=== PATIENT | female | born 1990 | race African-American/Black ===

== ENCOUNTER 2016-05-20 15:10 | Outpatient (CLI) | payer BC ==
--- NOTE | 2016-05-20 16:01 | L&D Flow Sheet ---
LD Flowsheet Datetime Report Generated by CPN: 05/20/2016 16:00 Datetime: 05/20/2016 15:42 Vital Signs Stage of : OB Triage (Elsy Nicole Roulund, RN) NBP Sys/Edith/Mean (mmHg): 110 (QS system process) : 67 (QS system process) : 83 (QS system process) Pulse: 78 (QS system process) Uterine Activity Monitor Mode: External (Elsymaksim Rivera Roulund, RN) Monitor Interventions for UA: [place] Adjusted (Elsy Rivera Roulund, RN) Resting Tone (Palpate): Relaxed (Elsy Rivera Roulund, RN) Assessment A Monitor Mode: External US (Elsy Castillolund, RN) Monitor Interventions for FHR: Ultrasound Adjusted (Elsy Rivera Roulund, RN) FHR Baseline Rate : 135 (Elsy Castillolund, RN) Pain Pain Scale: 2 (Elsy Daniellend, RN) Pain Presence: Constant (Elsy Monzon, ZACH) Pain Type: Pressure (Elsy Monzon, ZACH) Pain Location: Abdomen (Elsy Monzon RN) Pain Relief Measures: Comfort Measures (Elsy Monzon, ZACH) Vaginal Exam Membrane Status: Intact (Elsy Monzon, ZACH) Vaginal Bleeding: None (Elsy Monzon, ZACH) Maternal Assessment Level of Consciousness: Fully Conscious (Elsy Monzon RN) DTR's/Clonus: DTRs 1+; No Clonus (Elsy Monzon, ZACH) Headache: Denies (Elsy Monzon, ZACH) Nausea/Vomiting: Denies (Elsy Monzon, ZACH) Patient Care Patient Position/Activity: Left Tilt; Low Fowlers (Elsy Monzon RN) I/O Interventions: Popsicle; Clear Liquids Given; Up to BR (Elsy Monzon RN) Teaching Instructional Method: Verbal; Patient Instructed; Verbalized Understanding (Elsy Monzon RN) Plan of Care: Plan of Care Discussed (Elsy Monzon RN) Unit Routine: Krebs to Room; Call Kapoor; Bed; Phone/Cell Phone Use; Unit Personnel; Handwashing; Monitoring; Safety/Fall Risk Prevention; Diet/Nutrition Services; Bathroom Privileges (Elsy Monzon RN) Pain Management: Pain Scale/Goals; Comfort Measures (Elsy Monzon RN) Related: Common Discomforts of ; Maternal Physical Changes; Maternal Emotional Changes; Nutrition; Hydration; Activity and Rest (Elsy Monzon RN) Communication Communication: RN at Bedside; RN Reviewed Strip (Elsy Monzon RN) LaborFlag: OB Triage (QS system process)
== END 2016-05-20 16:06 | disposition home or self-care (01) ==
LOC: LC 15:10
PROVIDERS: ATTEND Obstetrics & Gynecology
PROC: 4A1HXCZ Monitoring of Products of Conception, Cardiac Rate, External Approach (ICD-10-PCS; principal; 2016-05-20)
DX: O26.893 Other specified pregnancy related conditions, third trimester (principal); R10.9 Unspecified abdominal pain; Z3A.36 36 weeks gestation of pregnancy
CPT/HCPCS: 59025

== ENCOUNTER 2016-06-14 04:47 | Inpatient (IN) | payer BC ==
[2016-06-14 05:46] LABS: APPEARANCE,URINE CLEAR; BILIRUBIN,URINE NEGATIVE (NEGATIVE); GLUCOSE, URINE NEGATIVE (NEGATIVE); KETONES,URINE NEGATIVE (NEGATIVE); LEUKOCYTE ESTERASE,URINE NEGATIVE (NEGATIVE); NITRITE,URINE NEGATIVE (NEGATIVE); PROTEIN,URINE NEGATIVE (NEGATIVE); URINE SPECIFIC GRAVITY 1.005; UROBILINOGEN,URINE NEGATIVE mg/dL (<2.0)
[2016-06-14 06:11] LABS: URINE METHADONE SCREEN NEGATIVE; URINE OPIATES LOW NEGATIVE; URINE PHENCYCLIDINE SCREEN NEGATIVE
[2016-06-14 06:48] LABS: URINE BARBITURATES SCREEN UNCONFIRMED POSITIVE
[2016-06-14 07:27] LABS: ABSOLUTE BASOPHILS # (AUTO) 0.1 10^3/uL (0.0-0.2); ABSOLUTE EOSINOPHILS # (AUTO) 0.2 10^3/uL (0.0-0.6); ABSOLUTE MONOCYTES (AUTO) 0.8 10^3/uL (0.1-1.4); BASOPHILS % (AUTO) 0.6 % (0-2); EOSINOPHILS % (AUTO) 1.2 % (0-6); HEMATOCRIT 36.5 % (36.0-47.0); HEMOGLOBIN 11.9 g/dL (12.0-15.5); HGB HCT DIFFERENCE -0.8; LYMPHOCYTES % (AUTO) 23.3 % (13-45); MEAN CORPUSCULAR HEMOGLOBIN 25.6 pg (27.0-33.4); MEAN CORPUSCULAR HGB CONC 32.7 g/dL (32.0-36.0); MEAN CORPUSCULAR VOLUME 78 fl (80-97); MONOCYTES % (AUTO) 5.9 % (3-13); RED BLOOD COUNT 4.66 10^6/uL (3.72-5.28); RED CELL DISTRIBUTION WIDTH 13.8 % (11.5-14.0)
--- NOTE | 2016-06-14 08:00 | L&D Flow Sheet ---
LD Flowsheet Datetime Report Generated by CPN: 06/14/2016 08:00 Datetime: 06/14/2016 07:41 I/O Interventions: Up to BR (Stacia Marhefka, RN) Datetime: 06/14/2016 07:30 Uterine Activity Monitor Mode: External (Stacia Marhefka, RN) Frequency (min): 3-8 (Stacia Marhefka, RN) Quality: Mild (Stacia Marhefka, RN) Duration (sec): 50-80 (Stacia Marhefka, RN) Resting Tone (Palpate): Relaxed (Stacia Marhefka, RN) Assessment A Monitor Mode: External US (Stacia Marhefka, RN) FHR Baseline Rate : 130 (Stacia Marhefka, RN) FHR Baseline Changes: No Baseline Change (Staica Marhefka, RN) Variability: Minimal - Undetectable to <=5 bpm (Stacia Marhefka, RN) Accelerations: 15X15 (Stacia Marhefka, RN) Decelerations: None (Stacia Marhefka, RN) Datetime: 06/14/2016 07:24 Vital Signs NBP Sys/Edith/Mean (mmHg): 124 (QS system process) : 86 (QS system process) : 100 (QS system process) Pulse: 80 (QS system process) Respirations: 17 (Stacia Marhefka, RN) LaborFlag: OB Triage (QS system process) Datetime: 06/14/2016 07:22 Maternal Assessment Level of Consciousness: Fully Conscious (Stacia Marhefka, RN) DTR's/Clonus: DTRs 2+; No Clonus (Stacia Marhefka, RN) Headache: Denies (Stacia Marhefka, RN) Breath Sounds, Left: Clear and Equal (Stacia Marhefka, RN) Breath Sounds, Right: Clear and Equal (Stacia Marhefka, RN) Nausea/Vomiting: Denies (Stacia Marhefka, RN) RUQ Epigastric Pain: Denies (Stacia Marhefka, RN) Datetime: 06/14/2016 07:21 Patient Care IV/Blood Work: IV Started; IV Bolus Started (Mariposa Wells, RN) Datetime: 06/14/2016 07:18 Communication Comments: Bedside report to R Marfheka RN (Mariposa Priscilla, RN) Datetime: 06/14/2016 07:12 Procedures: Consents Signed (Mariposa Priscilla, RN) Datetime: 06/14/2016 07:00 Uterine Activity Monitor Mode: External (Stacia Marhefka, RN) Frequency (min): 4-9 (Stacia Marhefka, RN) Quality: Mild (Stacia Marhefka, RN) Duration (sec): 60-90 (Stacia Marhefka, RN) Resting Tone (Palpate): Relaxed (Stacia Marhefka, RN) Assessment A Monitor Mode: External US (Stacia Marhefka, RN) FHR Baseline Rate : 140 (Stacia Marhefka, RN) FHR Baseline Changes: No Baseline Change (Stacia Marhefka, RN) Variability: Moderate 6-25 bpm (Stacia Marhefka, RN) Accelerations: 15X15 (Stacia Marhefka, RN) Decelerations: Late (Stacia Marhefka, RN) Datetime: 06/14/2016 06:58 Provider Reviewed Strip: Yes (Mariposa Wells RN) Communication Comments: Report to Dr Anglin, Dr Anglin reviewed strip. Pt's pain level reviewed with Dr Anglin. Orders to admit pt (Mariposa Priscilla, RN) Datetime: 06/14/2016 06:45 Communication Comments: Dr Derrek on unit, report given. Orders to extend labor check 1 hour and repeat SVE (Mariposa Priscilla, RN) Datetime: 06/14/2016 05:57 Uterine Activity Monitor Mode: External; Palpation (Mariposa Priscilla, RN) Frequency (min): 3-7 (Mariposa Priscilla, RN) Quality: Mild/Moderate (Mariposa Priscilla, RN) Duration (sec): 60-100 (Mariposa Priscilla, RN) Resting Tone (Palpate): Relaxed (Mariposa Priscilla, RN) Assessment A Monitor Mode: External US (Mariposa Priscilla, RN) FHR Baseline Rate : 125 (Mariposa Priscilla, RN) Variability: Moderate 6-25 bpm (Mariposa Priscilla, RN) Accelerations: 15X15 (Mariposa Priscilla, RN) Decelerations: None (Mariposa Priscilla, RN) Patient Care Comments: monitors removed, pt to ambulate unit until 629 (Mariposa Priscilla, RN) Datetime: 06/14/2016 05:49 Comments: music for acoustic stimulation of (Mariposa Priscilla, RN) Patient Position/Activity: Right Lateral (Mariposa Priscilla, RN) Communication Communication: RN at Bedside (Mariposa Albrechtsel, RN) Datetime: 06/14/2016 05:35 Patient Position/Activity: Left Tilt (Mariposa Priscilla, RN) I/O Interventions: Popsicle (Mariposa Albrechtsel, RN) Datetime: 06/14/2016 05:30 Uterine Activity Monitor Mode: External; Palpation (Mariposa Priscilla, RN) Frequency (min): 3-6 (Mariposa Priscilla, RN) Quality: Mild/Moderate (Mariposa Priscilla, RN) Duration (sec): 50-80 (Mariposa Priscilla, RN) Resting Tone (Palpate): Relaxed (Mariposa Priscilla, RN) Assessment A Monitor Mode: External US (Mariposa Priscilla, RN) FHR Baseline Rate : 125 (Mariposa Priscilla, RN) Variability: Moderate 6-25 bpm (Mariposa Priscilla, RN) Accelerations: 10X10 (Mariposa Priscilla, RN) Decelerations: None (Mariposa Priscilla, RN) Datetime: 06/14/2016 05:15 Frequency (min): q 8-10 per pt (Mariposa Priscilla, RN) Quality: Mild/Moderate (Mariposa Priscilla, RN) Pain Pain Scale: 5 (Mariposa Priscilla, RN) Pain Presence: Intermittent (Mariposa Priscilla, RN) Pain Type: Contraction (Mariposa Priscilla, RN) Pain Location: Abdomen; Back (Mariposa Priscilla, RN) Pain Coping: Breathing Through Contractions (Mariposa Priscilla, RN) Membrane Status: Intact (Mariposa Priscilla, RN) Vaginal Bleeding: Normal Show (Mariposa Priscilla, RN) Maternal Assessment Level of Consciousness: Fully Conscious (Mariposa Priscilla, RN) DTR's/Clonus: DTRs 2+; No Clonus (Mariposa Priscilla, RN) Headache: Generalized (Mariposa Priscilla, RN) Breath Sounds, Left: Clear and Equal (Mariposa Priscilla, RN) Breath Sounds, Right: Clear and Equal (Mariposa Priscilla, RN) Nausea/Vomiting: Denies (Mariposa Priscilla, RN) RUQ Epigastric Pain: Denies (Mariposa Priscilla, RN) Patient Position/Activity: Left Lateral (Mariposa Priscilla, RN) Teaching Instructional Method: Verbal; Patient Instructed; Family/Support Person Instructed; Verbalized Understanding (Mariposa Priscilla, RN) Plan of Care: Plan of Care Discussed (Mariposa Albrechtsel, RN) LaborFlag: OB Triage (QS system process) Datetime: 06/14/2016 05:13 Vital Signs NBP Sys/Edith/Mean (mmHg): 114 (QS system process) : 72 (QS system process) : 88 (QS system process) Pulse: 78 (QS system process) LaborFlag: OB Triage (QS system process) Datetime: 06/14/2016 05:11 Vital Signs NBP Sys/Edith/Mean (mmHg): 142 (QS system process) : 82 (QS system process) : 106 (QS system process) Pulse: 95 (QS system process) LaborFlag: OB Triage (QS system process) Datetime: 06/14/2016 05:06 Vaginal Exam Dilatation (cm): 2.0 (Mariposa Wells RN) Effacement (%): 50 (Mariposa Wells RN) Station: -3 (Mariposa Wells RN) Exam by: Lorne Wells RN (Mariposa Wells RN) Vaginal Bleeding: None (Mariposa Wells RN) Cervix, Consistency: Moderate (Mariposa Wells RN) Cervix, Position: Posterior (Mariposa Wells RN)
[2016-06-14] MEDS ORDERED: OXYTOCIN/NORMAL SALINE 1,000 ML IV PRN ×2 (08:12→09:59)
[2016-06-14] MEDS ORDERED: EPHEDRINE SULFATE INJ 50 MG/1 ML AMPULE ONE (08:33)
[2016-06-14] MEDS ORDERED: FENTANYL CITRATE INJ/PF 100 MCG/2 ML AMPUL ONE ×2 (08:33→08:39)
[2016-06-14] MEDS ORDERED: BUPIVACAINE HCL 0.25 % INJ/PF (2.5 MG/1 ML) 30 ML VIAL ONE (08:33)
[2016-06-14] MEDS ORDERED: FENTANYL/BUPIVACAINE/NS/PF 200 MCG/100 ML RTUINJ EPI ONE (08:33)
[2016-06-14] MEDS ORDERED: PHENYLEPHRINE HCL INJ/PF 10 MG/1 ML SDV ONE (08:33)
[2016-06-14] MEDS ORDERED: LIDOCAINE 1% INJ-PF (10 MG/ML) 30 ML SDV ONE (08:48)
[2016-06-14] MEDS ORDERED: OXYTOCIN/NORMAL SALINE 20 UNIT/1,000 ML RTUINJ ONE (08:48)
[2016-06-14] MEDS ORDERED: MISOPROSTOL 0.2 MG TABLET ONE ×2 (08:48)
[2016-06-14] MEDS ORDERED: ZOLPIDEM TARTRATE 5 MG TABLET PO PRN (09:59)
[2016-06-14] MEDS ORDERED: DIPHENHYDRAMINE HCL 25 MG CAPSULE PO PRN (09:59)
[2016-06-14] MEDS ORDERED: ACETAMINOPHEN WITH CODEINE #3 TABLET PO PRN (09:59)
[2016-06-14] MEDS ORDERED: DIBUCAINE 1% OINTMENT 28 GM TP PRN (09:59)
[2016-06-14] MEDS ORDERED: PSEUDOEPHEDRINE HCL 30 MG TABLET PO PRN (09:59)
[2016-06-14] MEDS ORDERED: PROMETHAZINE HCL 25 MG TABLET PO PRN (09:59)
[2016-06-14] MEDS ORDERED: MAGNESIUM HYDROXIDE SUSP 30 ML UDCUP PO PRN (09:59)
[2016-06-14] MEDS ORDERED: GLYCERIN/WITCH HAZEL LEAF 1 EACH MED..PAD TP PRN (09:59)
[2016-06-14] MEDS ORDERED: ACETAMINOPHEN 650 MG SUPP.RECT PR PRN (09:59)
[2016-06-14] MEDS ORDERED: BENZOCAINE/MENTHOL AEROSOL SPRAY 56 ML TOP PRN (09:59)
[2016-06-14] MEDS ORDERED: DIPH/PERTUSS(ACELL)/TETANUS VAC/PF 0.5 ML SYR (>=10YO) IM PRN (09:59)
[2016-06-14] MEDS ORDERED: PROMETHAZINE HCL 25 MG SUPP.RECT PR PRN (09:59)
[2016-06-14] MEDS ORDERED: PROMETHAZINE HCL INJ 25 MG/1 ML VIAL IV PRN (09:59)
[2016-06-14] MEDS ORDERED: MEASLES,MUMPS&RUBELLA VACC/PF 0.5 ML VIAL SUBCUT PRN (09:59)
[2016-06-14] MEDS ORDERED: NA PHOS,M-B/NA PHOS,DI-BA (ADULT) 133 ML ENEMA PR PRN (09:59)
--- NOTE | 2016-06-14 10:00 | L&D Flow Sheet ---
LD Flowsheet Datetime Report Generated by CPN: 06/14/2016 10:00 Datetime: 06/14/2016 09:53 Stage of : Recovery (Ronel Murray, RN) Respirations: 18 (Ronel Murray, RN) Datetime: 06/14/2016 09:42 NBP Sys/Edith/Mean (mmHg): 140 (QS system process) : 84 (QS system process) : 107 (QS system process) Pulse: 96 (QS system process) I/O Interventions: [place] Discontinued (Ronel Murray, RN) Patient Care Comments: 200mL output (Ronel Murray, RN) LaborFlag: OB Triage (QS system process) Datetime: 06/14/2016 09:41 Communication Comments: Dr Frias at bedside for delivery (Ronel Sappall, RN) Datetime: 06/14/2016 09:36 NBP Sys/Edith/Mean (mmHg): 115 (QS system process) : 66 (QS system process) : 85 (QS system process) Pulse: 82 (QS system process) LaborFlag: OB Triage (QS system process) Datetime: 06/14/2016 09:35 NBP Sys/Edith/Mean (mmHg): 139 (QS system process) : 70 (QS system process) : 99 (QS system process) Pulse: 82 (QS system process) Pulse: 85 (QS system process) SpO2 (%): 99 (QS system process) Monitor Interventions for UA: [place] Adjusted (Ronel Murray RN) Patient Position/Activity: Left Tilt (Ronel Murray RN) LaborFlag: OB Triage (QS system process) Datetime: 06/14/2016 09:34 NBP Sys/Edith/Mean (mmHg): 146 (QS system process) : 66 (QS system process) : 95 (QS system process) Pulse: 90 (QS system process) LaborFlag: OB Triage (QS system process) Datetime: 06/14/2016 09:33 NBP Sys/Edith/Mean (mmHg): 153 (QS system process) : 95 (QS system process) : 117 (QS system process) Pulse: 90 (QS system process) Pulse: 91 (QS system process) SpO2 (%): 89 (QS system process) LaborFlag: OB Triage (QS system process) Datetime: 06/14/2016 09:32 NBP Sys/Edith/Mean (mmHg): 151 (QS system process) : 92 (QS system process) : 116 (QS system process) Pulse: 91 (QS system process) Epidural Procedure Other: Pump Started (Ronel Murray RN) LaborFlag: OB Triage (QS system process) Datetime: 06/14/2016 09:31 NBP Sys/Edith/Mean (mmHg): 142 (QS system process) : 83 (QS system process) : 108 (QS system process) Pulse: 86 (QS system process) LaborFlag: OB Triage (QS system process) Datetime: 06/14/2016 09:30 Pulse: 87 (QS system process) SpO2 (%): 98 (QS system process) LaborFlag: OB Triage (QS system process) Datetime: 06/14/2016 09:29 NBP Sys/Edith/Mean (mmHg): 149 (QS system process) : 84 (QS system process) : 111 (QS system process) Pulse: 90 (QS system process) Epidural Procedure: Cath Placed (Roenl Senaitdy, RN) LaborFlag: OB Triage (QS system process) Datetime: 06/14/2016 09:28 Epidural Procedure: Test Dose (Ronel Murray, RN) Datetime: 06/14/2016 09:25 Pulse: 109 (QS system process) SpO2 (%): 100 (QS system process) LaborFlag: OB Triage (QS system process) Datetime: 06/14/2016 09:23 Procedure Type: epidural (Ronel Murray RN) Procedure Verify: Correct Patient Identity; Correct Side and Site are Marked; Accurate Procedure Consent Form; Agreement on Procedure to be Done; Correct Patient Position; Relevant Images and Results are Properly Labeled and Displayed; Addressed Need to Administer Antibiotics or Fluids for Irrigation; Safety Precautions Based on Patient History or Medication Use (Ronel Murray RN) Anesthesia Plans: Epidural (Ronel Murray RN) Epidural Positioning: Sitting (Ronel Murray RN) Datetime: 06/14/2016 09:21 Anesthesia Comments: Dr Valero at bedside (Ronel Murray, RN) Datetime: 06/14/2016 09:12 Monitor Interventions for UA: [place] Adjusted (Ronel Murray, RN) Datetime: 06/14/2016 09:00 Monitor Mode: External; Palpation (Alivia Godfrey RN) Frequency (min): 2-6 (Alivia Godfrey RN) Quality: Moderate (Alivia Godfrey RN) Duration (sec): 60-90 (Alivia Godfrey RN) Resting Tone (Palpate): Relaxed (Alivia Godfrey RN) Monitor Mode: External US (Alivia Godfrey RN) FHR Baseline Rate : 125 (Alivia Godfrey RN) Variability: Moderate 6-25 bpm (Alivia Godfrey RN) Accelerations: 15X15 (Alivia Godfrey RN) Decelerations: Variable (Alivia Godfrey RN) Patient Care Comments: Pt vomiting (Ronel Murray, RN) Datetime: 06/14/2016 08:54 NBP Sys/Edith/Mean (mmHg): 120 (QS system process) : 63 (QS system process) : 86 (QS system process) Pulse: 84 (QS system process) LaborFlag: OB Triage (QS system process) Datetime: 06/14/2016 08:45 Anesthesia Comments: Dr [place] notified of pt request for epidural. (Ronel Murray, RN) Datetime: 06/14/2016 08:30 Monitor Mode: External US (Alivia Godfrey RN) FHR Baseline Rate : 125 (Alivia Godfrey RN) Variability: Minimal - Undetectable to <=5 bpm (Alivia Godfrey RN) Accelerations: 15X15 (Alivia Godfrey RN) Comments: Poor tracing due to maternal position on ball. RN at bedside adjusting EFM (Alivia Godfrey RN) Datetime: 06/14/2016 08:00 Monitor Mode: External; Palpation (Alivia Godfrey RN) Frequency (min): Irreg (Alivia Godfrey RN) Quality: Mild (Alivia Godfrey RN) Duration (sec): 60-80 (Alivia Godfrey RN) Resting Tone (Palpate): Relaxed (Alivia Godfrey RN) Monitor Mode: External US (Alivia Godfrey RN) FHR Baseline Rate : 125 (Alivia Godfrey RN) Variability: Minimal - Undetectable to <=5 bpm (Alivia Godfrey RN) Accelerations: 15X15 (Alivia Godfrey RN) Comments: Poor tracing due to maternal position on birthing ball. RN at bedside adjusting EFM. (Alivia Godfrey RN)
--- NOTE | 2016-06-14 11:50 | Delivery Summary ---
Del Sum A-C Datetime Report Generated by CPN: 06/14/2016 11:50 ADMISSION DATA Chief Complaint: Uterine Contractions Indication for Induction: Not Applicable Admission Impression: Term, Intrauterine ; Active Labor; Intact Membranes DELIVERY PERSONNEL Delivery Doctor:: Phillip Frias MD Labor and Delivery Nurse:: Stacia Brown RNfan engine engineer Nurse:: Ronel Murray RN Nursery Nurse:: Alivia Godfrey RN [employer] Repairer/PROCESS ENGINEERING INTERN: Gumaro Santiago, MANAGER TITLE MATERNAL INFORMATION Delivery Anesthesia: Epidural Medications After Delivery: Pitocin Bolus-Please Comment Meds After Delivery Comment: Pitocin 20 units in 1000 mL NS Estimated Blood Loss (ml): 150 Maternal Complications: None LABOR SUMMARY EDC: 06/20/2016 00:00 No. Babies in Womb: 1 Attempted: No Labor Anesthesia: Epidural LABOR INFORMATION Reason for Induction: Not Applicable Onset of Labor: 06/14/2016 07:00 Complete Dilatation: 06/14/2016 09:38 Oxytocin: N/A Group B Beta Strep: negative Antibiotics # of Doses: 0 Antibiotics Time of Last Dose: N/A Steroids Given: None Reason Steroids Not Administered: Not Applicable MEMBRANES Membranes Rupture Method: Spontaneous Rupture of Membranes: 06/14/2016 09:00 Length of Rupture (hr): 0.85 Amniotic Fluid Color: Light Meconium Amniotic Fluid Amount: Scant Amniotic Fluid Odor: Normal STAGES OF LABOR Stage 1 hr: 2 Stage 1 min: 38 Stage 2 hr: 0 Stage 2 min: 13 Stage 3 hr: 0 Stage 3 min: 2 Total Time in Labor hr: 2 Total Time in Labor min: 53 VAGINAL DELIVERY Episiotomy: None Laceration Extension: N/A Laceration Type: None Laceration Repair: Not Applicable Sponge Count Correct: Vaginal Sweep Performed Sharps Count Correct: Yes BABY A INFORMATION Delivery Date/Time: 06/14/2016 09:51 Method of Delivery: Vaginal Born in Route : No : N/A Forceps: N/A Vacuum Extraction: N/A Shoulder Dystocia : No PRESENTATION/POSITION BABY A Presentation: Cephalic Cephalic Presentation: Vertex Vertex Position: Left Occipital Anterior Breech Presentation: N/A PLACENTA INFORMATION BABY A Placenta Delivery Time : 06/14/2016 09:53 Placenta Method of Delivery: Spontaneous Placenta Status: Delivered SCORES BABY A Heart Rate 1 min: >100 bpm Resp Effort 1 min: Good Cry Reflex Irritability 1 min: Cough or Sneeze or Pulls Away Muscle Tone 1 min: Some Flexion of Extremities Color 1 min: Blue/Pale Resuscitation Effort 1 min: Tactile Stimulation SCORE 1 MIN: 7 Heart Rate 5 min: >100 bpm Resp Effort 5 min: Good Cry Reflex Irritability 5 min: Cough or Sneeze or Pulls Away Muscle Tone 5 min: Active Motion Color 5 min: Body [place], Extremities Blue Resuscitation Effort 5 min: Tactile Stimulation SCORE 5 MIN: 9 INFORMATION BABY A Gestational Age at Delivery: 39.1 Gestational Status: Full Term- 39- 40.6 Weeks Outcome : Liveborn Infant Condition : Stable Infant Sex: Male IDENTIFICATION BABY A Infant Verification Date/Time: 06/14/2016 10:00 ID Band Number: [id number] Mother's Name Verified: Yes RN Verifying Infant: Kimberly Godfrey, RN and RAna Brown, RN WEIGHT/LENGTH BABY A Infant Birthweight (gm): 3150 Weight (lb): 6 Weight (oz): 15 Infant Length (in): 20.00 Length (cm): 50.80 CORD INFORMATION BABY A No. Cord Vessels: 3 Nuchal Cord : N/A Cord Blood Taken: Yes-For Storage (Mom's Blood type +) Infant Suction: Mouth; Nose ASSESSMENT BABY A Complications: None Physical Findings at Delivery: Within Normal Limits Respirations: Appears Normal Skin to Skin: Yes Gunner'S Mate/ALS Called : No Infant Care By: Kimberly HuttonZACH arreaga Transferred To: Remains with Mother BABY B INFORMATION : N/A SIGNATURES Signature: with User ID: [email or web address]
--- NOTE | 2016-06-14 12:30 | Admission Physical ---
Datetime Report Generated by CPN: 06/14/2016 12:30 CURRENT ADMISSION Chief Complaint: Uterine Contractions Indication for Induction: Not Applicable Admit Plan: Admit to Unit; Initiate Labor Protocol ALLERGIES Medication Allergies: No Medication Allergies: No Known Allergies (06/14/2016) Medication Allergies: No Known Allergies (05/20/2016) Medication Allergies: No Known Allergies (01/20/2016) Latex: No Latex Allergies Environmental Allergies: yes OBSTETRICAL HISTORY EDC: 06/20/2016 00:00 : 3 Para: 2 Gestational Diabetes: No Rh Sensitization: No Incompetent Cervix: No NIKKY: No Infertility: No ART Treatment: No Uterine Anomaly: No IUGR: No Hx Previous C/S: No Macrosomia: No Hx Loss/Stillborn: No PIH: No Hx : No Placenta Previa/Abruption: No Depression/PP Depression: Yes PTL/PROM: No Post Hemorrhage: No Current Procedures: Ultrasound; NST Obstetrical History Comments: G1: 2007 40 weeks male 8 lbs 10 oz G2: 2009 39 weeks female 7 lbs 11 oz G3: SEE RECORDS Alcohol: No Marijuana : No Cocaine: No Other Illicit Drugs: No Cigarettes: Never Smoker. [id number] MEDICAL HISTORY Diabetes: No Blood Transfusion: No Pulmonary Disease (Asthma, TB): No Breast Disease: No Hypertension: No [place] Surgery: No Heart Disease: No Hosp/Surgery: Yes Autoimmune Disorder: No Anesthetic Complications: No Kidney Disease: No Abnormal Pap Smear: Yes Neuro/Epilepsy: Yes Psychiatric Disorders: No Other Medical Diseases: Yes Hepatitis/Liver Disease: No Significant Family History: No Varicosities/Phlebitis: No Trauma/Violence : No Thyroid Dysfunction: No Medical History Comments: daily headaches during , taking fiorcet depression/anxiety- meds in past INFECTIOUS HISTORY Gonorrhea: No Genital Herpes: No Chlamydia: No Tuberculosis: No Syphilis: No Hepatitis: No HIV/AIDS Exposure: No Rash or Viral Illness: No 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 ASCUS pap, colpo post PHYSICAL EXAM General: Normal HEENT: Normal Neurologic: Normal Thyroid: Deferred Heart: Normal Lungs: Normal Breast: Deferred Back: Normal Abdomen: Normal Genitourinary Exam: Normal Extremities: Normal DTRs: Normal Pelvic Type: Adequate Vital Signs: Reviewed; Within Normal Limits VAGINAL EXAM Dilatation: 3 Effacement: 50 Station: -3 MEMBRANES Membranes: Intact FETUS A EGA: 39.1 Monitoring: External US FHR- Baseline: 140 Variability: Moderate 6-25bpm Accelerations: 15X15 Decelerations: None FHR Category: Category I PLANS FOR LABOR AND DELIVERY Pain Management: Epidural Feeding Preference: Breast Benefit of Breast Feed Discussed: Yes Circumcision: Yes INFORMED CONSENT Signature: with User ID: [email or web address]
[2016-06-14] MEDS: SENNOSIDES/DOCUSATE 8.6-50 MG 1 EACH TABLET PO SCH (13:15)
[2016-06-14] MEDS: FERROUS SULFATE 325 MG TABLET PO SCH ×2 (13:15→17:08)
[2016-06-14] MEDS: DOCUSATE SODIUM 100 MG CAPSULE PO SCH ×2 (13:15→17:08)
[2016-06-14] MEDS: PRENATAL VITAMIN W-O CA NO5/FE FUMARATE/FA CAPSULE PO SCH (13:15)
[2016-06-14] MEDS: FAMOTIDINE 20 MG TABLET PO SCH ×2 (13:15→21:07)
[2016-06-14] MEDS ORDERED: IBUPROFEN 800 MG TABLET PO SCH (14:00)
[2016-06-14] MEDS: IBUPROFEN 800 MG TABLET PO SCH (17:08)
[2016-06-14] MEDS: ACETAMINOPHEN WITH CODEINE #3 TABLET PO PRN (18:30)
--- NOTE | 2016-06-14 19:00 | L&D Flow Sheet ---
LD Flowsheet Datetime Report Generated by CPN: 06/14/2016 19:00 Datetime: 06/14/2016 11:54 NBP Sys/Edith/Mean (mmHg): 126 (QS system process) : 72 (QS system process) : 94 (QS system process) Pulse: 72 (QS system process) Datetime: 06/14/2016 11:45 Stage of : Recovery (Stacia Brown RN) Temperature (F): 99.3 (Stacia Brown RN) Temperature (C): 37.4 (QS system process) Temperature Route: Oral (Stacia Brown RN) Pain Scale: 1 (Stacia Brown RN) Pain Presence: Intermittent (Stacia Brown RN) Pain Type: Ache (Stacia Brown RN) Pain Location: Abdomen (Stacia Brown RN) Pain Goal: 0 (Stacia Brown RN) Pain Relief Measures: Comfort Measures (Staciameron Goelkim, RN) Datetime: 06/14/2016 11:24 Stage of : Recovery (Stacia Brown, ZACH) NBP Sys/Edith/Mean (mmHg): 129 (QS system process) : 63 (QS system process) : 90 (QS system process) Pulse: 73 (QS system process) Respirations: 15 (Stacia Brown, RN) Datetime: 06/14/2016 11:15 Stage of : Recovery (Stacia Brown, ZACH) Datetime: 06/14/2016 11:10 NBP Sys/Edith/Mean (mmHg): 146 (QS system process) : 69 (QS system process) : 99 (QS system process) Pulse: 87 (QS system process) Datetime: 06/14/2016 11:00 Stage of : Recovery (Stacia Marhefka, RN) Datetime: 06/14/2016 10:55 NBP Sys/Edith/Mean (mmHg): 153 (QS system process) : 64 (QS system process) : 92 (QS system process) Pulse: 81 (QS system process) Datetime: 06/14/2016 10:45 Stage of : Recovery (Stacia Marhefka, RN) Datetime: 06/14/2016 10:30 Stage of : Recovery (Stacia Marhefka, RN) Datetime: 06/14/2016 10:25 NBP Sys/Edith/Mean (mmHg): 124 (QS system process) : 66 (QS system process) : 90 (QS system process) Pulse: 85 (QS system process) Datetime: 06/14/2016 10:15 Stage of : Recovery (Stacia Brown, RN) Datetime: 06/14/2016 10:00 Stage of : Recovery (Stacia Brown RN) Pain Scale: 1 (Stacia Brown RN) Pain Presence: Constant (Stacia Brown RN) Pain Type: Burning (Stacia Brown RN) Pain Location: Perineum (Stacia Brown RN) Pain Goal: 0 (Stacia Brown RN) Pain Relief Measures: Comfort Measures (Stacia Brown, ZACH) Datetime: 06/14/2016 09:53 Stage of : Recovery (Ronel Murray, ZACH) Respirations: 18 (Ronel Sappall, RN) Datetime: 06/14/2016 09:46 Pain Scale: 2 (Alivia Godfrey RN) Pain Presence: Intermittent (Alivia Godfrey RN) Pain Type: Pressure (Alivia Godfrey RN) Pain Location: Perineum (Alivia Godfrey RN) Pain Goal: 0 (Alivia Godfrey RN) Pain Relief Measures: Epidural Given (Alivia Godfrey RN) LaborFlag: OB Triage (QS system process) Datetime: 06/14/2016 09:45 Monitor Mode: External; Palpation (Alivia Godfrey RN) Frequency (min): 3-4 (Alivia Godfrey RN) Quality: Moderate to Strong (Alivia Godfrey RN) Duration (sec): 60-80 (Alivia Godfrey RN) Resting Tone (Palpate): Relaxed (Alivia Godfrey RN) Monitor Mode: External US (Alivia Godfrey RN) FHR Baseline Rate : 135 (Alivia Godfrey RN) Variability: Moderate 6-25 bpm (Alivia Godfrey RN) Accelerations: None (Alivia Godfrey RN) Decelerations: Variable (Alivia Godfrey RN) Datetime: 06/14/2016 09:42 NBP Sys/Edith/Mean (mmHg): 140 (QS system process) : 84 (QS system process) : 107 (QS system process) Pulse: 96 (QS system process) I/O Interventions: Peoples Discontinued (Ronel Murray RN) Patient Care Comments: 200mL output (Ronel Murray RN) LaborFlag: OB Triage (QS system process) Datetime: 06/14/2016 09:41 Communication Comments: Dr Frias at bedside for delivery (Ronel Murray RN) Datetime: 06/14/2016 09:40 Communication: Call/Page Placed to Provider (Alivia Godfrey RN) Provider Notified (Name): Dr. Frias (Alivia Godfrey RN) Communication Comments: Notified of SVE and imminent delivery. Provider to come to bedside for delivery. (Alivia Godfrey RN) Datetime: 06/14/2016 09:38 Dilatation (cm): 10.0 (Alivia Godfrey RN) Effacement (%): 100 (Alivia Godfrey RN) Station: 2 (Alivia Godfrey RN) Exam by: Zoe Brown RN (Alivia Godfrey RN) Datetime: 06/14/2016 09:36 NBP Sys/Edith/Mean (mmHg): 115 (QS system process) : 66 (QS system process) : 85 (QS system process) Pulse: 82 (QS system process) I/O Interventions: Peoples Cath Inserted (Alivia Godfrey RN) LaborFlag: OB Triage (QS system process) Datetime: 06/14/2016 09:35 NBP Sys/Edith/Mean (mmHg): 139 (QS system process) : 70 (QS system process) : 99 (QS system process) Pulse: 82 (QS system process) Pulse: 85 (QS system process) SpO2 (%): 99 (QS system process) Monitor Interventions for UA: [employer] Adjusted (Ronel Murray RN) Patient Position/Activity: Left Tilt (Ronel Murray RN) LaborFlag: OB Triage (QS system process) Datetime: 06/14/2016 09:34 NBP Sys/Edith/Mean (mmHg): 146 (QS system process) : 66 (QS system process) : 95 (QS system process) Pulse: 90 (QS system process) LaborFlag: OB Triage (QS system process) Datetime: 06/14/2016 09:33 NBP Sys/Edith/Mean (mmHg): 153 (QS system process) : 95 (QS system process) : 117 (QS system process) Pulse: 90 (QS system process) Pulse: 91 (QS system process) SpO2 (%): 89 (QS system process) LaborFlag: OB Triage (QS system process) Datetime: 06/14/2016 09:32 NBP Sys/Edith/Mean (mmHg): 151 (QS system process) : 92 (QS system process) : 116 (QS system process) Pulse: 91 (QS system process) Epidural Procedure Other: Pump Started (Ronel Murray RN) LaborFlag: OB Triage (QS system process) Datetime: 06/14/2016 09:31 NBP Sys/Edith/Mean (mmHg): 142 (QS system process) : 83 (QS system process) : 108 (QS system process) Pulse: 86 (QS system process) LaborFlag: OB Triage (QS system process) Datetime: 06/14/2016 09:30 Pulse: 87 (QS system process) SpO2 (%): 98 (QS system process) Monitor Mode: External; Palpation (Alivia Godfrey RN) Frequency (min): 3-4 (Alivia Godfrey RN) Quality: Moderate to Strong (Alivia Godfrey RN) Duration (sec): 60-90 (Alivia Godfrey, RN) Resting Tone (Palpate): Relaxed (Alivia Godfrey, RN) Monitor Mode: External US (Alivia Godfrey RN) FHR Baseline Rate : 135 (Alivia Godfrey RN) Variability: Moderate 6-25 bpm (Alivia Godfrey, RN) Accelerations: None (Alivia Godfrey, RN) Decelerations: Variable (Alivia Godfrey, RN) LaborFlag: OB Triage (QS system process) Datetime: 06/14/2016 09:29 NBP Sys/Edith/Mean (mmHg): 149 (QS system process) : 84 (QS system process) : 111 (QS system process) Pulse: 90 (QS system process) Epidural Procedure: Cath Placed (Ronel Murray, RN) LaborFlag: OB Triage (QS system process) Datetime: 06/14/2016 09:28 Epidural Procedure: Test Dose (Ronel Murray, RN) Datetime: 06/14/2016 09:25 Pulse: 109 (QS system process) SpO2 (%): 100 (QS system process) LaborFlag: OB Triage (QS system process) Datetime: 06/14/2016 09:23 Procedure Type: epidural (Ronel Murray RN) Procedure Verify: Correct Patient Identity; Correct Side and Site are Marked; Accurate Procedure Consent Form; Agreement on Procedure to be Done; Correct Patient Position; Relevant Images and Results are Properly Labeled and Displayed; Addressed Need to Administer Antibiotics or Fluids for Irrigation; Safety Precautions Based on Patient History or Medication Use (Ronel Murray RN) Anesthesia Plans: Epidural (Ronel Murray RN) Epidural Positioning: Sitting (Ronel Murray RN) Datetime: 06/14/2016 09:21 Anesthesia Comments: Dr [place] at bedside (Ronel Murray, ZACH) Datetime: 06/14/2016 09:12 Monitor Interventions for UA: [employer] Adjusted (Ronel Murray RN) Datetime: 06/14/2016 09:00 Monitor Mode: External; Palpation (Alivia Godfrey RN) Frequency (min): 2-6 (Alivia Godfrey RN) Quality: Moderate (Alivia Godfrey RN) Duration (sec): 60-90 (Alivia Godfrey RN) Resting Tone (Palpate): Relaxed (Alivia Godfrey RN) Monitor Mode: External US (Alivia Godfrey RN) FHR Baseline Rate : 125 (Alivia Godfrey RN) Variability: Moderate 6-25 bpm (Alivia Godfrey RN) Accelerations: 15X15 (Alivia Godfrey RN) Decelerations: Variable (Alivia Godfrey RN) Membrane Status: Ruptured (Stacai Brown RN) Membranes Rupture Method: Spontaneous (Stacia Brown RN) Amniotic Fluid Color: Light Meconium (Stacia Brown RN) Amniotic Fluid Amount: Scant (Stacia Brown RN) Amniotic Fluid Odor: Normal (Stacia Brown RN) Patient Care Comments: Pt vomiting (Ronel Murray RN) Datetime: 06/14/2016 08:54 NBP Sys/Edith/Mean (mmHg): 120 (QS system process) : 63 (QS system process) : 86 (QS system process) Pulse: 84 (QS system process) LaborFlag: OB Triage (QS system process) Datetime: 06/14/2016 08:50 Dilatation (cm): 8.0 (Stacia Brown, RN) Effacement (%): 90 (Stacia Brown, RN) Station: 0 (Stacia Brown, RN) Exam by: RAna Brown RN (Stacia Goelfka, RN) Datetime: 06/14/2016 08:45 Anesthesia Comments: Dr Valero notified of pt request for epidural. (Ronel Murray RN) Datetime: 06/14/2016 08:34 IV/Blood Work: IV Bolus Started (Alivia Godfrey RN) Datetime: 06/14/2016 08:33 Pain Scale: 5 (Alivia Godfrey RN) Pain Presence: Intermittent (Alivia Godfrey RN) Pain Type: Contraction (Alivia Godfrey RN) Pain Location: Abdomen (Alivia Godfrey RN) Pain Goal: 0 (Alivia Godfrey RN) Pain Assessment Comments: Epidural requested. (Alivia Godfrey RN) LaborFlag: OB Triage (QS system process) Datetime: 06/14/2016 08:32 Dilatation (cm): 7.0 (Alivia Godfrey RN) Effacement (%): 90 (Alivia Godfrey RN) Station: -1 (Alivia Godfrey RN) Exam by: Kimberly Godfrey RN (Alivia Godfrey RN) Patient Position/Activity: Left Lateral (Alivia Godfrey, RN) Datetime: 06/14/2016 08:30 Monitor Mode: External US (Alivia Godfrey, RN) FHR Baseline Rate : 125 (Alivia Godfrey, RN) Variability: Minimal - Undetectable to <=5 bpm (Alivia Godfrey, RN) Accelerations: 15X15 (Alivia Godfrey RN) Comments: Poor tracing due to maternal position on ball. RN at bedside adjusting EFM (Alivia Godfrey, ZACH) Datetime: 06/14/2016 08:00 Monitor Mode: External; Palpation (Alivia Godfrey RN) Frequency (min): Irreg (Alivia Godfrey RN) Quality: Mild (Alivia Godfrey, RN) Duration (sec): 60-80 (Alivia Godfrey RN) Resting Tone (Palpate): Relaxed (Alivia Godfrey, RN) Monitor Mode: External US (Alivia Godfrey RN) FHR Baseline Rate : 125 (Alivia Godfrey, RN) Variability: Minimal - Undetectable to <=5 bpm (Alivia Godfrey, RN) Accelerations: 15X15 (Alivia Godfrey, RN) Comments: Poor tracing due to maternal position on birthing ball. RN at bedside adjusting EFM. (Alivia Godfrey, RN) Datetime: 06/14/2016 07:59 Patient Care Comments: Pt vomiting (Ronel Baidy, RN) Datetime: 06/14/2016 07:41 I/O Interventions: Up to BR (Stacia Marhefka, RN) Datetime: 06/14/2016 07:30 Monitor Mode: External (Stacia Marhefka, RN) Frequency (min): 3-8 (Stacia Marhefka, RN) Quality: Mild (Stacia Marhefka, RN) Duration (sec): 50-80 (Stacia Marhefka, RN) Resting Tone (Palpate): Relaxed (Stacia Marhefka, RN) Monitor Mode: External US (Stacia Marhefka, RN) FHR Baseline Rate : 130 (Stacia Marhefka, RN) FHR Baseline Changes: No Baseline Change (Stacia Marhefka, RN) Variability: Minimal - Undetectable to <=5 bpm (Stacia Marhefka, RN) Accelerations: 15X15 (Stacia Marhefka, RN) Decelerations: None (Stacia Marhefka, RN) Datetime: 06/14/2016 07:24 NBP Sys/Edith/Mean (mmHg): 124 (QS system process) : 86 (QS system process) : 100 (QS system process) Pulse: 80 (QS system process) Respirations: 17 (Stacia Marhefka, RN) LaborFlag: OB Triage (QS system process) Datetime: 06/14/2016 07:22 Level of Consciousness: Fully Conscious (Stacia Marhefka, RN) DTR's/Clonus: DTRs 2+; No Clonus (Stacia Marhefka, RN) Headache: Denies (Stacia Marhefka, RN) Breath Sounds, Left: Clear and Equal (Stacia Marhefka, RN) Breath Sounds, Right: Clear and Equal (Stacia Marhefka, RN) Nausea/Vomiting: Denies (Stacia Marhefka, RN) RUQ Epigastric Pain: Denies (Stacia Marhefka, RN) Datetime: 06/14/2016 07:21 IV/Blood Work: IV Started; IV Bolus Started (Mariposa Priscilla, RN) Datetime: 06/14/2016 07:18 Communication Comments: Bedside report to [facility] RN (Mariposa Priscilla, RN) Datetime: 06/14/2016 07:12 Procedures: Consents Signed (Mariposa Priscilla, RN) Datetime: 06/14/2016 07:00 Monitor Mode: External (Stacia Manasafka, RN) Frequency (min): 4-9 (Stacia Marcatefka, RN) Quality: Mild (Stacia Marhefka, RN) Duration (sec): 60-90 (Stacia Manasafka, RN) Resting Tone (Palpate): Relaxed (Stacia Manasafka, RN) Monitor Mode: External US (Stacia Manasafka, RN) FHR Baseline Rate : 140 (Stacia Manasafka, RN) FHR Baseline Changes: No Baseline Change (Stacia Phylliska, RN) Variability: Moderate 6-25 bpm (Stacia Marhefka, RN) Accelerations: 15X15 (Stacia Marhefka, RN) Decelerations: Late (Stacia Marhefka, RN)
[2016-06-15] MEDS: ACETAMINOPHEN WITH CODEINE #3 TABLET PO PRN (00:04)
[2016-06-15] MEDS: IBUPROFEN 800 MG TABLET PO SCH ×3 (02:06→19:37)
--- NOTE | 2016-06-15 06:00 | L&D Current Admission ---
Current Admit Datetime Report Generated by CPN: 06/15/2016 06:00 ADMISSION INFORMATION Current Admit Date/Time: 06/14/2016 06:58 (06/14/2016 05:15:Analy Willis RN) Reason for Admission: Onset of Labor (06/14/2016 05:15:Analy Willis RN) Chief Complaint: Contractions (06/14/2016 05:15:Mariposa Wells RN) Medications During : Vitamin (06/14/2016 05:15:Analy Willis RN) EGA per Dates: 39.1 (06/14/2016 05:15:QS system process) Method of Arrival: Wheelchair (06/14/2016 05:15:Analy Willis RN) Admitted From: Home (06/14/2016 05:15:Analy Willis RN) Reason for Induction: Not Applicable (06/14/2016 05:15:Analy Willis RN) Records Available: Yes (06/14/2016 05:15:Analy Willis RN) General Admission Information: Reviewed; Updated; Confirmed (06/14/2016 05:15:Mariposa Wells RN) General Admission Reviewed By: Lorne Wells RN (06/14/2016 05:15:Mariposa Wells RN) BELONGINGS/ADVANCED DIRECTIVES Other Belongings: See [facility] belongings form (06/14/2016 05:15:Mariposa Wells RN) Advance Direct for Healthcare: No, and Wants No Information (06/14/2016 05:15:Mariposa Wells RN) Durable Power of Fabricator Special Items: No (06/14/2016 05:15:Mariposa Wells RN) Living Will: No (06/14/2016 05:15:Mariposa Wells RN) Organ Donor: No (06/14/2016 05:15:Mariposa Wells RN) Pt Rights Information Given: Yes (06/14/2016 05:15:Mariposa Wells RN) Pt Understands Pt Rights: Yes (06/14/2016 05:15:Mariposa Wells RN) LEARNING ASSESSMENT Knowledge Level: Understands L_D Process (06/14/2016 05:15:Mariposa Wells RN) Barriers to Learning: Emotional State; Pain (06/14/2016 05:15:Mariposa Wells RN) Learning Readiness: Motivated (06/14/2016 05:15:Mariposa Wells RN) Learns Best By: 1 to 1 Instruction (06/14/2016 05:15:Mariposa Wells RN) Learning Needs: Labor and Delivery Process; Pain Management; Symptoms to Report; Treatment Plan; Medication; Diagnosis; Nutrition; Equipment; Infant Care (06/14/2016 05:15:Mariposa Wells RN) DOMESTIC VIOLANCE SCREENING Dom Viol Threatened/Hurt: No (06/14/2016 05:15:Mariposa Wells RN) Hx of Abuse/Neglect past 2yrs: No (06/14/2016 05:15:Mariposa Wells RN) Feel Unsafe Going Home: No (06/14/2016 05:15:Mariposa Wells RN) Addt'l Observ Indicating Abuse: No (06/14/2016 05:15:Mariposa Wells RN) Reason Unable to Complete Screen: N/A, Screen Completed (06/14/2016 05:15:Mariposa Wells RN) Considered Personal Harm/Suicide: No (06/14/2016 05:15:Mariposa Wells RN) NUTRITIONAL/FUNCTIONAL SCREENING Problem with Appetite >5 Days: No (06/14/2016 05:15:Mariposa Wells RN) Chew/Swallow Difficulties: No (06/14/2016 05:15:Mariposa Wells RN) Inappropriate Wt Gain/Loss: No (06/14/2016 05:15:Mariposa Wells RN) Presence Skin Breakdown/Ulcer: No (06/14/2016 05:15:Mariposa Wells RN) Special Diet: No (06/14/2016 05:15:Mariposa Wells RN) Pt Requests Early Childhood Worker Visit: No (06/14/2016 05:15:Mariposa Wells RN) Hx of Any of the Following?: N/A (06/14/2016 05:15:Mariposa Wells RN) New Diagnosis of: N/A (06/14/2016 05:15:Mariposa Wells RN) Requires Assist w/Ambulation: No (06/14/2016 05:15:Mariposa Wells RN) Uses Assist Device to Ambulate: No (06/14/2016 05:15:Mariposa Wells RN) Pt Requires Help w/ADL's: No (06/14/2016 05:15:Mariposa Wells RN)
--- NOTE | 2016-06-15 06:01 | L&D General Admission ---
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: [employer] (05/20/2016 15:16:Mariposa Wells RN) Month of 1st Visit: november 2015 (05/20/2016 15:16:Mariposa Wells RN) Adequate Care: Yes (05/20/2016 15:16:Mariposa Wells RN) Height (in): 66 (06/14/2016 12:29:QS system process) ALLERGIES Medication Allergy: No (05/20/2016 15:16:Mariposa Wells RN) Medication Allergies: No Known Allergies (06/14/2016) (06/14/2016 04:57:QS system process) Latex Allergy: No Latex Allergies (05/20/2016 15:16:Mariposa Wells RN) Environmental Allergies: yes (05/20/2016 15:16:Mariposa Wells RN) COMMUNICATION Primary Language: Macedonian (05/20/2016 15:16:Mariposa Wells RN) Medical Tx Preferred Language: Macedonian (05/20/2016 15:16:Mariposa Wells RN) DEMOGRAPHICS Address: [address] [place] [id number] (05/20/2016 15:11:QS system process) Zipcode: [address] (05/20/2016 15:11:QS system process) Home (05/20/2016 15:11:QS system process) Work (05/20/2016 15:11:QS system process) SSN: [id number] (05/20/2016 15:11:QS system process) Next of Kin Name: EMERY PARISI (05/20/2016 15:11:QS system process) Next of Kin (05/20/2016 15:11:QS system process) Next of Kin Relationship: SPO (05/20/2016 15:11:QS system process) Date of : 1990 (05/20/2016 15:11:QS system process) Marital Status: (05/20/2016 15:11:QS system process) Sex: Female (05/20/2016 15:11:QS system process) Race: (05/20/2016 15:11:QS system process) Ethnicity: Non- or (05/20/2016 15:11:QS system process) Bahai: None (05/20/2016 15:11:QS system process) DRUG AND ALCOHOL USE Alcohol: No (05/20/2016 15:16:Mariposa Wells, RN) Cigarettes: Never Smoker. [id number] (05/20/2016 15:16:Mariposa Wells, RN) Marijuana: No (05/20/2016 15:16:Mariposa Wells, RN) Cocaine: No (05/20/2016 15:16:Mariposa Wells, RN) Other Illicit Drugs: No (05/20/2016 15:16:Mariposa Wells, RN) VACCINE HISTORY Influenza Vaccine: No (05/20/2016 15:16:Mariposa Wells RN) Pneumococcal Vaccine: No (05/20/2016 15:16:Mariposa Wells, ZACH) Tetanus Vaccine: Yes (05/20/2016 15:16:Mariposa Wells RN) Tdap Vaccine: Yes (05/20/2016 15:16:Mariposa Wells RN) Hepatitis B Vaccine: Yes (05/20/2016 15:16:Mariposa Wells RN) Pediatric Immunologist: [facility] (05/20/2016 15:16:Mariposa Wells RN) Feeding Preference: Breast (05/20/2016 15:16:Mariposa Wells RN) Benefit of Breast Feed Discussed: Yes (05/20/2016 15:16:Mariposa Wells RN) Circumcision: Yes (05/20/2016 15:16:Mariposa Wells RN) Classes Attended: No (05/20/2016 15:16:Mariposa Wells RN) Tubal Ligation: No (05/20/2016 15:16:Mariposa Wells RN) Tubal Authorization Signed: N/A (05/20/2016 15:16:Mariposa Wells RN) Consent: N/A (05/20/2016 15:16:Mariposa Wells RN) Consent Signed: N/A (05/20/2016 15:16:Mariposa Wells RN) Pain Management Plans: Epidural (05/20/2016 15:16:Mariposa Wells RN) Support Person: Red[place] (05/20/2016 15:16:Mariposa Wells RN) Support Person Relationship: Mother (05/20/2016 15:16:Mariopsa Wells RN) Other Relationship: mom and qhicwy-ky-dac (05/20/2016 15:16:Mariposa Wells RN) Cultural/Spritual Practice: No (05/20/2016 15:16:Mariposa Wells RN) Spir/Cult Dietary Needs: No (05/20/2016 15:16:Mariposa Wells RN) LIVING SITUATION/DISCHARGE PLAN Living Arrangements: House (05/20/2016 15:16:Mariposa Wells RN) Adequate Access to:: Electric; Heat; Refrigeration; Plumbing/Running water; Phone; Transportation (05/20/2016 15:16:Mariposa Wells RN) WIC Program: No (05/20/2016 15:16:Mariposa Wells RN) Discharge Pediatric Anesthesiologist Person: mom (05/20/2016 15:16:Mariposa Wells RN) Person to Help after Discharge: mom (05/20/2016 15:16:Mariposa Wells RN) Currently Using Commun Resources: No (05/20/2016 15:16:Mariposa Wells RN) Car Seat for Discharge: Yes (05/20/2016 15:16:Mariposa Wells RN) Adoption Requested: No (05/20/2016 15:16:Mariposa Wells RN) Pt Contact w/ Post : N/A (05/20/2016 15:16:Mariposa Wells RN) LABS Blood Type: B Positive (05/20/2016 15:16:Arlet Ellis RN) Antibody Screen: negative (05/20/2016 15:16:Mariposa Wells RN) Hemoglobin: 11.9 L (06/14/2016 07:17:QS system process) Hematocrit: 36.5 (06/14/2016 07:17:QS system process) MCV: 78 L (06/14/2016 07:17:QS system process) Group Beta Strep: negative (05/20/2016 15:16:Ronel Murray RN) RPR/VDRL: Nonreactive (05/20/2016 15:16:Arlet Ellis RN) HIV Exposure Test: Negative (05/20/2016 15:16:Arlet Ellis RN) Hepatitis B: Negative (05/20/2016 15:16:Arlet Ellis RN) Rubella: Immune (05/20/2016 15:16:Arlet Ellis RN) OB/PREVIOUS HISTORY Previous Procedures: Ultrasound; NST (05/20/2016 15:16:Mariposa Wells RN) Current Procedures: Ultrasound; NST (05/20/2016 15:16:Mariposa Wells RN) History of Previous : No (05/20/2016 15:16:Mariposa Wells RN) History of Gestational Diabetes: No (05/20/2016 15:16:Mariposa Wells RN) History of PIH: No (05/20/2016 15:16:Mariposa Wells RN) History of Incompetent Cervix: No (05/20/2016 15:16:Mariposa Wells RN) History of Placenta Previa/Abrup: No (05/20/2016 15:16:Mariposa Wells RN) History of Macrosomia: No (05/20/2016 15:16:Mariposa Wells RN) History of IUGR: No (05/20/2016 15:16:Mariposa Wells RN) History of Hemorrhage: No (05/20/2016 15:16:Mariposa Wells RN) History of Loss/Stillborn: No (05/20/2016 15:16:Mariposa Wells RN) History of : No (05/20/2016 15:16:Mariposa Wells RN) History of D (Rh) Sensitization: No (05/20/2016 15:16:Mariposa Wells RN) History Recurrent Loss/Stillborn: No (05/20/2016 15:16:Mariposa Wells RN) History Depression/PP Depression: Yes (05/20/2016 15:16:Mariposa Wells RN) History of Uterine Anomaly/NIKKY: No (05/20/2016 15:16:Mariposa Wells RN) History of Infertility: No (05/20/2016 15:16:Mariposa Wells RN) History of ART Treatment: No (05/20/2016 15:16:Mariposa Wells RN) History of NIKKY: No (05/20/2016 15:16:Mariposa Wells RN) Comments Obstetrical History: G1: 2007 40 weeks male 8 lbs 10 oz G2: 2009 39 weeks female 7 lbs 11 oz G3: (05/20/2016 15:16:Mariposa Wells RN) MEDICAL HISTORY Med Hx Diabetes: No (05/20/2016 15:16:Mariposa Wells RN) Med Hx Hypertension: No (05/20/2016 15:16:Mariposa Wells RN) Med Hx Heart Disease: No (05/20/2016 15:16:Mariposa Wells RN) Med Hx Autoimmune Disorder: No (05/20/2016 15:16:Mariposa Wells RN) Med Hx Kidney Disease/UTI: No (05/20/2016 15:16:Mariposa Wells RN) Med Hx Neurologic/Epilepsy: Yes (05/20/2016 15:16:aMriposa Wells RN) Med Hx Psychiatric Disorders: No (05/20/2016 15:16:Mariposa Wells RN) Med Hx Hepatitis/Liver Disease: No (05/20/2016 15:16:Mariposa Wells RN) Med Hx Varicosities/Phlebitis: No (05/20/2016 15:16:Mariposa Wells RN) Med Hx Thyroid Dysfunction: No (05/20/2016 15:16:Mariposa Wells RN) Med Hx Trauma/Violence: No (05/20/2016 15:16:Mariposa Wells RN) Med Hx Blood Transfusion: No (05/20/2016 15:16:Mariposa Wells RN) Med Hx Pulmonary (Asthma,TB): No (05/20/2016 15:16:Mariposa Wells RN) Med Hx Breast: No (05/20/2016 15:16:Mariposa Wells RN) Med Hx FACE MAN Surgery: No (05/20/2016 15:16:Mariposa Wells RN) Med Hx Hospitalization/Surgery: Yes (05/20/2016 15:16:Mariposa Wells RN) Med Hx Anesthetic Complications: No (05/20/2016 15:16:Mariposa Wells RN) Med Hx Abnormal Pap Smear: Yes (05/20/2016 15:16:Mariposa Wells RN) Other Medical Diseases: Yes (05/20/2016 15:16:Arlet Ellis RN) Med Hx Significant Family Hx: No (05/20/2016 15:16:Mariposa Wells RN) Details of Med/Surg Hx: daily headaches during , taking fiorcet depression/anxiety- meds in past (05/20/2016 15:16:Mariposa Wells RN) INFECTIOUS HISTORY Inf Hx Gonorrhea: No (05/20/2016 15:16:Mariposa Wells RN) Inf Hx Chlamydia: No (05/20/2016 15:16:Mariposa Wells RN) Inf Hx Syphilis: No (05/20/2016 15:16:Mariposa Wells RN) Inf Hx HIV/AIDS: No (05/20/2016 15:16:Mariposa Wells RN) Inf Hx Human Papilloma Virus: Yes (05/20/2016 15:16:Arlet Ellis RN) Inf Hx Pt/Partner Genital Herpes: No (05/20/2016 15:16:Mariposa Wells RN) Inf Hx Tuberculosis/Exposure: No (05/20/2016 15:16:Mariposa Wells RN) Inf Hx Hepatitis B,C: No (05/20/2016 15:16:Mariposa Wells RN) Inf Hx Rash or Viral Illness: No (05/20/2016 15:16:Mariposa Wells RN) Details of Infectious Hx: HPV + 2016 ASCUS pap, colpo post (05/20/2016 15:16:Arlet Ellis RN) GENETIC HISTORY Gen Hx Age >=35 at KUNAL: No (05/20/2016 15:16:Mariposa Wells RN) Gen Hx Thalassemia: No (05/20/2016 15:16:Mariposa Wells RN) Gen Hx Congenital Heart Defect: No (05/20/2016 15:16:Mariposa Wells RN) Gen Hx Neural Tube Defect: No (05/20/2016 15:16:Mariposa Wells RN) Gen Hx Down's Syndrome: No (05/20/2016 15:16:Mariposa Wells RN) Gen Hx Bo-Sachs: No (05/20/2016 15:16:Mariposa Wells RN) Gen Hx Randolph: No (05/20/2016 15:16:Mariposa Wells RN) Gen Hx Familial Dysautonomia: No (05/20/2016 15:16:Mariposa Wells RN) Gen Hx Sickle Cell Disease/Trait: No (05/20/2016 15:16:Mariposa Wells RN) Gen Hx Hemophilia/Blood Disorder: No (05/20/2016 15:16:Mariposa Wells RN) Gen Hx Muscular Dystrophy: No (05/20/2016 15:16:Mariposa Wells RN) Gen Hx Cystic Fibrosis: No (05/20/2016 15:16:Mariposa Wells RN) Gen Hx Huntingtons Chorea: No (05/20/2016 15:16:Mariposa Wells RN) Gen Hx Mental Retardation/Autism: No (05/20/2016 15:16:Mariposa Wells RN) Gen Hx Tested for Fragile X: No (05/20/2016 15:16:Mariposa Wells RN) Gen Hx Other Inher/Chromosomal: No (05/20/2016 15:16:Mariposa Wells RN) Gen Hx Maternal Metabolic DO: No (05/20/2016 15:16:Mariposa Wells RN) Gen Hx Pt Father or FOB Defect: No (05/20/2016 15:16:Mariposa Wells RN) Gen Hx Other Genetic History: No (05/20/2016 15:16:Mariposa Wells RN) Gen Hx Drugs/Meds since LMP: Yes (05/20/2016 15:16:Mariposa Wells RN) Gen Hx Medications: benadryl, fioricet, pnv (05/20/2016 15:16:Mariposa Wells RN)
--- NOTE | 2016-06-15 06:15 | L&D Care Plan ---
LD CARE PLANS Datetime Report Generated by CPN: 06/15/2016 06:15 Datetime: 06/14/2016 07:05 Pain State: Actual (Analy Willis RN) Related To: Labor and Delivery Process; Complication(s) of ; Treatment and Procedures; Post (Analy Willis RN) Goal(s): Patients Pain will be Assessed and Managed; Patient will Verbalize Adequate Relief of Pain or the Ability to [place] with Current Pain (Analy Willis RN) Interventions: Assess Pain Severity on Scale of 0 (None) to 5 (Severe); Assess Type, Location and Intensity of Pain Each Time Client Reports Discomfort and Notify Provider if Unusal Pain Develops; Encourage Proper Breathing and Relaxation Techniques; Offer Alternatives Such as Repositioning, Calm Environment, Massages, Diversional Activities, Ice Pack, Splinting, and Ambulation; Administer Analgesics as Ordered; Assist with Epidural Placement as Appropriate; Evaluate Therapeutic Effectiveness of Medication and Treatments (Analy Willis RN) Outcome: Patient will Report Absence or Relief of Pain Consistent with Established Pain Goal (Analy Willis RN) Status: Ongoing (Analy Willis RN) Outcome: Patient will have a Decrease in Signs and Symptoms of Discomfort (Analy Willis RN) Status: Ongoing (Analy Willis RN) Outcome: Pain will be Controlled During Procedures (Analy Willis RN) Status: Ongoing (Analy Willis RN) Anxiety State: Actual (Analy Willis RN) Related To: Labor and Delivery Process; Significant Life Event (Anayl Willis RN) Goal(s): Patient will have Decreased Anxiety and be able to Function at Acceptable Levels (Analy Willis RN) Interventions: Assess Verbal and Nonverbal Behavioral Indicators of Anxiety; Assist Patient to Identify and Verbalize Symptoms of Anxiety; Identify and Demonstrate Techniques to Control Anxiety; Assist Patient with Coping Mechanisms to Manage Anxiety; Provide Theraputic Touch for the Patient; Explain to Patient, Using a Calm Reassuring Approach and Nonmedical Terms, All Activities, Procedures, and Concerns; Instruct Patient and Family about Post Discharge Care, Limitations, Symptoms to Report and Resources Available (Analy Willis RN) Outcome: Patient will Identify, Verbalize and Demonstrate Techniques to Control Anxiety (Analy Willis RN) Status: Ongoing (Analy Willis RN) Outcome: Patient's Posture, Facial Expressions, Gestures and Activity Level will Reflect Decreased Anxiety (Analy Willis RN) Status: Ongoing (Analy Willis RN) Outcome: Patient will Verbalize a Sense of Control and/or Acceptance of the Situation (Analy Willis RN) Status: Ongoing (Analy Willis RN) Outcome: Patient will Identify and Utilize Support Person (Analy Willis RN) Status: Ongoing (Analy Willis RN) Knowledge Deficit State: Risk For (Analy Willis RN) Related To: Labor and Delivery Process; Treatment and Procedures (Analy Willis RN) Goal(s): Patient will Accurately Verbalize Understanding of Plan of Care and Treatment; Patient and Family will Accurately Verbalize Understanding of the Disease Process (Analy Willis RN) Interventions: Assess Motivation and Willingness of Patient/Family to Learn; Assess Preferred Learning Mode: One to One Instruction, Reading, Videos, Group Discussion or Demonstration; Assess Barriers to Learning: Pain, Emotional State, Language Barrier, Cognitive Impairment, Visual or Hearing Deficits; Assess Patient and Family Knowledge of Disease Process, Medications and Treatment; Discuss Therapy and/or Treatment Options, Describe Rationale Behind Management, Therapy and Treatment Recommendations; Instruct Patient and Family on Signs and Symptoms to Report; Instruct Patient and Family on Medication Effects and Side Effects; Provide Appropriate and Timely Education Using Multiple Techniques; Provide Patient and Family with Support Group Information and Resources; Give Clear and Thorough Explanations and Demonstrations (Analy Willis RN) Outcome: Patient and Family will Verbalize Understanding of Condition, Treatment and Signs and Symptoms to Report (Analy Willis RN) Status: Ongoing (Analy Willis RN) Outcome: Patient will Identify Perceived Learning Needs and Express Motivation to Learn (Analy Willis RN) Status: Ongoing (Analy Willis RN) Outcome: Patient will Verbalize Understanding of Desired Content, and/or Performs Desired Skill Prior to Discharge (Analy Willis RN) Status: Ongoing (Analy Willis, RN) Infection State: Risk For (Analy Willis RN) Related To: Surgical Procedures; Prolonged Labor or Induction; Invasive Procedures (Analy Willis RN) Goal(s): The Patient will be Free of Infection, Vital Signs Stable and Lab Work within Normal Parameters (Analy Willis, ZACH) Interventions: Instruct and Reinforce Proper Handwashing, Hygiene, and Care Techniques to Patient and Family; Monitor Vital Signs; Monitor Patient for the Following Signs of Infection: Fever, Abdominal Tenderness, Unusual Discharge; Monitor Aminiotic Fluid, Urine and Lochia for Color and Odor; Observe Wounds, Incisions and Invasive Line Sites for Redness, Drainage and Edema; Assess IV Sites per Hospital Policy; Monitor Lab and Test Results and Notify Provider of Abnormal Findings; Assess Nutritional Status and Promote Good Nutrition (Analy Willis, ZACH) Outcome: Patient will Remain Free of Infection (Analy Willis, RN) Status: Ongoing (Analy Willis RN) Outcome: Infection will be Recognized Early to Allow for Prompt Treatment (Analy Willis RN) Status: Ongoing (Analy Willis, RN) Outcome: Patient will have Vital Signs Within Expected Range (Analy Willis, RN) Status: Ongoing (Analy Willis, RN) Fluid Volume State: Risk For (Analy Willis RN) Related To: Prolonged Labor or Induction (Analy Willis RN) Goal(s): Patient will Achieve and Maintain a Balanced Fluid Volume Status; Hemodynamically Stable (Analy Willis RN) Interventions: Monitor Vital Signs; Auscultate Breath Sounds; Monitor Patient for Skin Turgor, Mucous Membranes, Dry Skin, Weakness, Headaches and Confusion; Provide Oral Fluids as Ordered; Initiate and Maintain Intravenous Fluids as Ordered; Monitor Intake and Output as Indicated Per Patient Status; Monitor Lab and Test Results as Obtained and Notify Provider of Abnormal Findings (Analy Willis RN) Outcome: Patient will have Clear Lung Sounds (Analy Willis RN) Status: Ongoing (Analy Willis RN) Outcome: Patient will have Vital Signs within Expected Range (Analy Willis RN) Status: Ongoing (Analy Willis RN) Outcome: Urine Output will be within Expected Range (Analy Willis RN) Status: Ongoing (Analy Willis RN) Outcome: Patient will have Minimal Generalized or Upper Extremity Edema (Analy Willis, ZACH) Status: Ongoing (Analy Willis, ZACH) Injury State: Risk For (Analy Willis RN) Related To: Labor and Delivery Process (Analy Willis RN) Goal(s): Patient will Remain Free from Injury (Analy Willis RN) Interventions: Monitoring as per Hospital Protocol; Assess Neurological Status; Perform Risk Assessment of Patients with Induction and ; Perform Fall Risk Assessment and Prevention per Hospital Protocol; Perform DVT Risk Assessment and Prophylaxis per Hospital Protocol; Ensure that Oxygen, Suction, and Resuscitation Medications and Equipment are Readily Available; Confirm Patient ID Prior to Procedure(s) and Medication Administration per Hospital Policy (Analy Willis RN) Outcome: Successful Fall Risk Prevention (Analy Willis RN) Status: Ongoing (Analy Willis RN) Outcome: Patient will Deliver without Adverse Sequela (Analy Willis RN) Status: Ongoing (Analy Willis RN) Outcome: Patient's Neurological Status will Remain Stable (Analy Willis RN) Status: Ongoing (Analy Willis RN) Impaired Skin Integrity State: Risk For (Analy Willis RN) Related To: Vaginal Delivery; Prolonged Bedrest; Invasive Procedures (Analy Willis RN) Goal(s): Patient will Maintain Optimal Skin Integrity, Free of Breakdown, Injury or Infection (Analy Willis RN) Interventions: Complete Screening for Pressure Ulcer Risk and Initiate Protocol per Hospital Policy; Monitor Site of Skin Impairment for Color Changes, Redness, Swelling, Warmth, Pain or Other Signs of Infection; Encourage and Assist with Position Changes; Monitor Patient's Mobility Status; Provide Adequate Nutrition and Fluids; Teach Patient Appropriate Hygienic Care; Teach Patient/Family Skin Care Management (Analy Willis RN) Outcome: Patient will not have Evidence of Injury Such as Skin Breakdown, Scrapes, Cuts, or Bruising (Analy Willis RN) Status: Ongoing (Analy Willis RN) Outcome: Patient will Report Any Altered Sensation or Pain at Site of Skin Impairment (Analy Willis RN) Status: Ongoing (Analy Willis RN) Outcome: Patients Incisions and Wounds will be without Signs or Symptoms of Infection (Analy Willis RN) Status: Ongoing (Analy Willis RN) Outcome: Patient will Demonstrate Understanding of Plan to Heal Skin and Prevent Reinjury and Verbalize Risk Factors (Analy Ring, RN) Status: Ongoing (Analy Ring, RN) Parenting Impaired State: Not Applicable (Analy Ring, RN) Nutrition State: Not Applicable (Analy Ring, RN) Grieving State: Not Applicable (Analy Ring, RN) Additional Care Plan State: Not Applicable (Analy Ring, RN)
[2016-06-15 08:35] LABS: HEMATOCRIT 32.6 % (36.0-47.0); HEMOGLOBIN 10.8 g/dL (12.0-15.5); HGB HCT DIFFERENCE -0.2; MEAN CORPUSCULAR HEMOGLOBIN 25.9 pg (27.0-33.4); MEAN CORPUSCULAR HGB CONC 33.1 g/dL (32.0-36.0); MEAN CORPUSCULAR VOLUME 79 fl (80-97); RED BLOOD COUNT 4.15 10^6/uL (3.72-5.28); WHITE BLOOD COUNT 12.9 10^3/uL (4.0-10.5)
[2016-06-15] MEDS: SENNOSIDES/DOCUSATE 8.6-50 MG 1 EACH TABLET PO SCH (10:54)
[2016-06-15] MEDS: DOCUSATE SODIUM 100 MG CAPSULE PO SCH ×2 (10:54→19:37)
[2016-06-15] MEDS: FERROUS SULFATE 325 MG TABLET PO SCH ×2 (10:55→19:37)
[2016-06-15] MEDS: PRENATAL VITAMIN W-O CA NO5/FE FUMARATE/FA CAPSULE PO SCH (10:55)
--- NOTE | 2016-06-15 11:30 | PDOC PROGRESS REPORT ---
Subjective-OB Subjective: Post Delivery Day: 26 year old. Denies any needs at this time. Pt doing well, no concerns. She reports light bleeding, regular diet and voiding well. Physical Exam (OB) Vital Signs: Temp Pulse Resp BP Pulse Ox 98.2 F 79 18 117/67 99 06/15/16 07:54 06/15/16 07:54 06/15/16 07:54 06/15/16 07:54 06/15/16 07:54 Intake & Output 06/14/16 06/15/16 06/16/16 06:59 06:59 06:59 Weight - PIH/Pre-Eclampsia Clonus: Negative - Lochia Lochia Amount: Scant < 10 ml Lochia Color: Rubra/Red - Abdomen Description: Soft Hernia Present: No Fundal Description: Firm, Midline Fundal Height: u/u - u/2 Objective-Diagnostic Laboratory: 06/15/16 08:10 06/15/16 08:10 WBC 12.9 H RBC 4.15 Hgb 10.8 L Hct 32.6 L MCV 79 L MCH 25.9 L MCHC 33.1 RDW 14.0 Plt Count 218 Assessment and Plan(PN) - Assessment and Plan (1) Vaginal delivery Is this a current diagnosis for this admission?: Yes - Time Spent with Patient Time with patient: Less than 15 minutes Medications reviewed and adjusted accordingly: Yes - Disposition Anticipated Discharge: Home Within: within 24 hours
[2016-06-15] MEDS: FAMOTIDINE 20 MG TABLET PO SCH ×2 (13:43→22:04)
[2016-06-16] MEDS: IBUPROFEN 800 MG TABLET PO SCH ×2 (02:05→10:54)
[2016-06-16 08:50] VITALS: BP 129/77
--- NOTE | 2016-06-16 09:39 | PDOC PROGRESS REPORT ---
Subjective-OB Subjective: Post Delivery Day: 26 year old. Denies any needs at this time. Ready to go home. Physical Exam (OB) Vital Signs: Temp Pulse Resp BP Pulse Ox 98.2 F 82 17 129/77 H 99 06/16/16 09:04 06/16/16 09:04 06/16/16 09:04 06/16/16 07:59 06/16/16 09:04 - PIH/Pre-Eclampsia Clonus: Negative - Lochia Lochia Amount: Small 10-25 ml Lochia Color: Rubra/Red - Abdomen Description: Soft, Round Hernia Present: No Bowel Sounds: Normoactive Flatus Presence: Present Stool: Yes Fundal Description: Firm, Midline Fundal Height: u/u - u/2 Objective-Diagnostic Laboratory: 06/15/16 08:10 Assessment and Plan(PN) - Time Spent with Patient Medications reviewed and adjusted accordingly: Yes - Disposition Anticipated Discharge: Home
--- NOTE | 2016-06-16 09:46 | PDOC DISCHARGE SUMMARY ---
Final Diagnosis Discharge Date: 06/16/16 - Final Diagnosis (1) Atypical squamous cells of undetermined significance (ASCUS) on gynecologic Papanicolaou smear affecting , antepartum Is this a current diagnosis for this admission?: Yes (2) Is this a current diagnosis for this admission?: Yes (3) Vaginal delivery Is this a current diagnosis for this admission?: Yes Discharge Data - Discharge Medication Home Medications: Prenat Vit Comb.10/Iron/FA/Dha [Vitafol-Ob+Dha Combo Pack] 1 tab PO DAILY Butalb/Acetaminophen/Caffeine [Fioricet (50-325-40 mg) Tablet] 1 cap PO Q4 PRN 06/14/16 Ferrous Sulfate [Feosol 325 mg Tablet] 325 mg PO DAILY #30 tablet 06/16/16 Ibuprofen [Motrin 800 mg Tablet] 800 mg PO Q8A #30 tablet 06/16/16 Gestational Age: 39.1 wks Reason(s) for Admission: Onset of Labor Intrapartum Procedure(s): Spontaneous Vaginal Delivery - Diagnosis Test Laboratory: Temp Pulse Resp BP Pulse Ox 98.2 F 82 17 129/77 H 99 06/16/16 09:04 06/16/16 09:04 06/16/16 09:04 06/16/16 07:59 06/16/16 09:04 06/14/16 06/14/16 06/15/16 05:00 07:17 08:10 RBC 4.66 4.15 Hgb 11.9 L 10.8 L Hct 36.5 32.6 L Urine Opiates Screen NEGATIVE - Discharge information/Instructions Discharge Activity: Activity As Tolerated, Balance Activity w/Rest, No Lifting Over 10 Pounds, Pelvic Rest, Slowly Increase Activity, No tub bath Discharge Diet: Regular Disposition: HOME, SELF-CARE Follow up with: [facility] in: 4, Weeks
[2016-06-16] MEDS: FAMOTIDINE 20 MG TABLET PO SCH (10:53)
[2016-06-16] MEDS: PRENATAL VITAMIN W-O CA NO5/FE FUMARATE/FA CAPSULE PO SCH (10:54)
[2016-06-16] MEDS: FERROUS SULFATE 325 MG TABLET PO SCH (10:54)
[2016-06-16] MEDS: DOCUSATE SODIUM 100 MG CAPSULE PO SCH (10:54)
[2016-06-16] MEDS: SENNOSIDES/DOCUSATE 8.6-50 MG 1 EACH TABLET PO SCH (11:12)
== END 2016-06-16 16:17 | disposition home or self-care (01) | DRG 774 ==
LOC: LC 04:47 → LR 07:04 → 2S 12:29
PROVIDERS: ADMIT Obstetrics & Gynecology; ATTEND Obstetrics & Gynecology
PROC: 10E0XZZ Delivery of Products of Conception, External Approach (ICD-10-PCS; principal; 2016-06-14)
PROC: 4A1HXCZ Monitoring of Products of Conception, Cardiac Rate, External Approach (ICD-10-PCS; 2016-06-14)
DX: O26.893 Other specified pregnancy related conditions, third trimester (principal); O15.1 Eclampsia complicating labor; R87.610 Atypical squamous cells of undetermined significance on cytologic smear of cervix (ASC-US); O99.344 Other mental disorders complicating childbirth; F32.9 Major depressive disorder, single episode, unspecified; O77.0 Labor and delivery complicated by meconium in amniotic fluid; Z3A.39 39 weeks gestation of pregnancy; Z37.0 Single live birth
CPT/HCPCS: 36415; 80307; 81005; 85025; 85027; 86592; 86850; 86900; 86901; 94760; J2370; J2590; J3010; J3490

== ENCOUNTER 2017-06-03 09:12 | Emergency (ER) | payer BC ==
--- NOTE | 2017-06-03 10:06 | ER Document Report ---
ED General - General Chief Complaint: OB Problem (<20wks) Stated Complaint: VAGINAL BLEEDING Time Seen by Provider: 06/03/17 09:46 Mode of Arrival: Ambulatory Information source: Patient Notes: 27-year-old female 4 para 3 presents with complaints of vaginal spotting. Patient notes bright red and pink spotting over the past 3 days. She denies any clots, last menstrual period was April 15, blood type is B+ TRAVEL OUTSIDE OF THE [place] IN LAST 30 DAYS: No - HPI Onset: Just prior to arrival Onset/Duration: Sudden Quality of pain: Cramping Severity: Mild Pain Level: 1 Associated symptoms: Other Exacerbated by: Denies Relieved by: Denies Similar symptoms previously: No Recently seen / treated by doctor: No - Related Data Allergies/Adverse Reactions: No Known Allergies Allergy (Verified 06/03/17 09:14) Past Medical History - Social History Smoking Status: Never Smoker Cigarette use (# per day): No Chew tobacco use (# tins/day): No Smoking Education Provided: No Frequency of alcohol use: None Drug Abuse: None Family History: Arthritis, CAD, CVA, DM, Hyperlipidemia, Hypertension Patient has suicidal ideation: No Patient has homicidal ideation: No Pulmonary Medical History: Reports: Hx Asthma, Hx Bronchitis Renal/ Medical History: Denies: Hx Peritoneal Dialysis Psychiatric Medical History: Reports: Hx Anxiety, Hx Depression Review of Systems - Review of Systems Notes: REVIEW OF SYSTEMS: CONSTITUTIONAL : Denies fever, chills, or sweats. Denies recent illness. EENT: Denies eye, ear, throat, or mouth pain or symptoms. Denies nasal or sinus congestion or discharge. Denies throat, tongue, or mouth swelling or difficulty swallowing. CARDIOVASCULAR: Denies chest pain. Denies palpitations or racing or irregular heart beat. Denies ankle edema. RESPIRATORY: Denies cough, cold, or chest congestion. Denies shortness of breath, difficulty breathing, or wheezing. GASTROINTESTINAL: Denies abdominal pain or distention. Denies nausea, vomiting , or diarrhea. Denies blood in vomitus, stools, or per rectum. Denies black, tarry stools. Denies constipation. GENITOURINARY: Denies difficulty urinating, painful urination, burning, frequency, blood in urine, or discharge. FEMALE GENITOURINARY: Admits to vaginal spotting MUSCULOSKELETAL: Denies back or neck pain or stiffness. Denies joint pain or swelling. SKIN: Denies rash, lesions or sores. HEMATOLOGIC : Denies easy bruising or bleeding. LYMPHATIC: Denies swollen, enlarged glands. NEUROLOGICAL: Denies confusion or altered mental status. Denies passing out or loss of consciousness. Denies dizziness or lightheadedness. Denies headache. Denies weakness or paralysis or loss of use of either side. Denies problems with gait or speech. Denies sensory loss, numbness, or tingling. Denies seizures. PSYCHIATRIC: Denies anxiety or stress. Denies depression, suicidal ideation, or homicidal ideation. ALL OTHER SYSTEMS REVIEWED AND NEGATIVE. PHYSICAL EXAMINATION: GENERAL: Well-appearing, well-nourished and in no acute distress. HEAD: Atraumatic, normocephalic. EYES: Pupils equal round and reactive to light, extraocular movements intact, conjunctiva are normal. ENT: Nares patent, oropharynx clear without exudates. Moist mucous membranes. NECK: Normal range of motion, supple without lymphadenopathy LUNGS: Breath sounds clear to auscultation bilaterally and equal. No wheezes rales or rhonchi. HEART: Regular rate and rhythm without murmurs ABDOMEN: Soft, nontender, nondistended abdomen. No guarding, no rebound. No masses appreciated. Female : deferred Musculoskeletal: Normal range of motion, no pitting or edema. No cyanosis. NEUROLOGICAL: Cranial nerves grossly intact. Normal speech, normal gait. Normal sensory, motor exams PSYCH: Normal mood, normal affect. SKIN: Warm, Dry, normal turgor, no rashes or lesions noted. Dictation was performed using [employer] voice recognition software Physical Exam - Vital signs Vitals: Temp Pulse Resp BP Pulse Ox 99.0 F 86 16 145/89 H 99 06/03/17 09:15 06/03/17 09:15 06/03/17 09:15 06/03/17 09:15 06/03/17 09:15 Course - Re-evaluation Re-evalutation: 06/03/17 10:05 Concerns for threatened miscarriage versus ectopic, lab work pending 06/03/17 12:22 Patient's hCG is 61, given that she has not had intercourse in the past week I am concerned about a miscarriage, ultrasound was inconclusive due to the level of quant, patient overall looks well is in no distress will be discharged home with 48 hour follow-up I have given her my card for her to call me when she does have the blood work performed After performing a Medical Screening Examination, I estimate there is LOW risk for ACUTE APPENDICITIS, BOWEL OBSTRUCTION, ACUTE CHOLECYSTITIS, PERFORATED DIVERTICULITIS, INCARCERATED HERNIA, PANCREATITIS, PELVIC INFLAMMATORY DISEASE, PERFORATED ULCER, ECTOPIC , or TUBO-OVARIAN ABSCESS, thus I consider the discharge disposition reasonable. Also, there is no evidence or peritonitis , sepsis, or toxicity. I have reevaluated this patient multiple times and no significant life threatening changes are noted. The patient and I have discussed the diagnosis and risks, and we agree with discharging home with close follow-up with the understanding that symptoms and presentations can change. We also discussed returning to the Emergency Department immediately if new or worsening symptoms occur. We have discussed the symptoms which are most concerning (e.g., bloody stool, fever, changing or worsening pain, vomiting) that necessitate immediate return. - Vital Signs Vital signs: Temp Pulse Resp BP Pulse Ox 98.4 F 97 20 153/88 H 100 06/03/17 12:16 06/03/17 12:16 06/03/17 12:16 06/03/17 12:16 06/03/17 12:16 - Laboratory Result Diagrams: 06/03/17 10:15 06/03/17 10:15 Laboratory results interpreted by me: 06/03/17 06/03/17 06/03/17 10:15 10:15 10:15 WBC 11.8 H RBC 5.55 H MCV 77 L MCH 24.9 L Beta HCG, Quant 61.28 H Urine Blood LARGE H Ur Leukocyte Esterase TRACE H Discharge - Discharge Clinical Impression: Threatened miscarriage in early , Bleeding in early Condition: Stable Disposition: HOME, SELF-CARE Instructions: Threatened Miscarriage ([facility]) Forms: Follow-Up Laboratory Testing Referrals: [facility] [Provider Group] - Follow up as needed
[2017-06-03 10:59] LABS: ABSOLUTE EOSINOPHILS # (AUTO) 0.2 10^3/uL (0.0-0.6); ABSOLUTE MONOCYTES (AUTO) 0.6 10^3/uL (0.1-1.4); ABSOLUTE NEUT (AUTO) 7.9 10^3/uL (1.7-8.2); BASOPHILS % (AUTO) 0.4 % (0-2); EOSINOPHILS % (AUTO) 1.6 % (0-6); HEMATOCRIT 42.7 % (36.0-47.0); HEMOGLOBIN 13.8 g/dL (12.0-15.5); LYMPHOCYTES % (AUTO) 25.8 % (13-45); MEAN CORPUSCULAR HEMOGLOBIN 24.9 pg (27.0-33.4); MEAN CORPUSCULAR HGB CONC 32.4 g/dL (32.0-36.0); MEAN CORPUSCULAR VOLUME 77 fl (80-97); MONOCYTES % (AUTO) 5.2 % (3-13); PLATELET COUNT 343 10^3/uL (150-450); RED BLOOD COUNT 5.55 10^6/uL (3.72-5.28); RED CELL DISTRIBUTION WIDTH 13.3 % (11.5-14.0); TOTAL CELLS COUNTED % (AUTO) 100 %; WHITE BLOOD COUNT 11.8 10^3/uL (4.0-10.5)
[2017-06-03 11:07] LABS: APPEARANCE,URINE SLIGHTLY-CLOUDY; BILIRUBIN,URINE NEGATIVE (NEGATIVE); COLOR,URINE YELLOW; GLUCOSE, URINE NEGATIVE (NEGATIVE); KETONES,URINE NEGATIVE (NEGATIVE); LEUKOCYTE ESTERASE,URINE TRACE (NEGATIVE); NITRITE,URINE NEGATIVE (NEGATIVE); PROTEIN,URINE NEGATIVE (NEGATIVE); URINE SPECIFIC GRAVITY 1.017; UROBILINOGEN,URINE NEGATIVE mg/dL (<2.0)
[2017-06-03 11:17] LABS: ALANINE AMINOTRANSFERASE 20 U/L (9-52); ALBUMIN 4.2 g/dL (3.5-5.0); ALKALINE PHOSPHATASE 81 U/L (38-126); ANION GAP 7 (5-19); ASPARTATE AMINO TRANSFERASE 21 U/L (14-36); BILIRUBIN,DIRECT 0.3 mg/dL (0.0-0.4); BILIRUBIN,TOTAL 0.4 mg/dL (0.2-1.3); BLOOD UREA NITROGEN 13 mg/dL (7-20); CALCIUM 9.6 mg/dL (8.4-10.2); CARBON DIOXIDE 25 mmol/L (22-30); CHLORIDE 106 mmol/L (98-107); GLUCOSE 87 mg/dL (75-110); POTASSIUM 4.3 mmol/L (3.6-5.0); SODIUM 138.4 mmol/L (137-145); TOTAL PROTEIN 7.4 g/dL (6.3-8.2)
--- NOTE | 2017-06-03 12:08 | RADIOLOGY REPORT (SQ) ---
EXAM DESCRIPTION: U/S OB TRANSVAGINAL W/O DOP COMPLETED DATE/TIME: 06/03/2017 11:46 am REASON FOR STUDY: vag bleed COMPARISON: None. TECHNIQUE: Transvaginal static and realtime grayscale images acquired of the pelvis. Additional jj cted spectral and color Doppler images recorded. All images stored on PACs. bHC.[id number] LIMITATIONS: None. FINDINGS: UTERUS: No masses. No anomalies. GESTATIONAL SAC: Not visualized YOLK SAC: Not visualized POLE: Not visualized RIGHT ADNEXA: Normal ovary with normal vascular flow. No adnexal free fluid. No adnexal masses. LEFT ADNEXA: Normal ovary with normal vascular flow. No adnexal free fluid. No adnexal masses. FREE FLUID: None. OTHER: Endometrial stripe measures 21.5 mm IMPRESSION: No IUP is identified. BHCG LEVEL APPROPRIATE FOR ENDOMETRIAL FINDINGS. CONSIDER F/U BHCG AND/OR ULTRASOUND FOR VERIFICATION of a living gestation AND TO EXCLUDE ECTOPIC PRE GNANCY. Trimester of : First - 0 to 13 weeks. TECHNICAL DOCUMENTATION: JOB ID: [id number] [employer]- All Rights Reserved Reading location - IP/workstation name: [email or web address]
[2017-06-03 12:17] VITALS: BP 153/88
== END 2017-06-03 12:37 | disposition home or self-care (01) ==
LOC: ER 09:12
DX: O20.0 Threatened abortion (principal); O20.9 Hemorrhage in early pregnancy, unspecified
CPT/HCPCS: 76817; 80053; 81001; 84702; 85025; 99284

== ENCOUNTER → 2017-06-05 | Outpatient (CLI) | payer BC | LOC: LAB 11:14 | PROVIDERS: ATTEND Emergency Medicine | DX: O46.90 Antepartum hemorrhage, unspecified, unspecified trimester (principal) | CPT/HCPCS: 36415; 84702 ==